=== PATIENT | male | born 1985 | race Caucasian/White ===

== ENCOUNTER 2017-04-22 16:10 | Inpatient (IN) | payer OTHER ==
[2017-04-24] MEDS ORDERED: MAGNESIUM HYDROXIDE 30 ML UDCUP PO PRN (16:21)
[2017-04-24] MEDS ORDERED: MAG HYDROX/AL HYDROX/SIMETH 30 ML UDCUP PO PRN (16:21)
[2017-04-24] MEDS ORDERED: SENNOSIDES 17.6 MG/10 ML UDL PO PRN (16:21)
[2017-04-24] MEDS: ACETAMINOPHEN 325 MG TAB PO PRN (18:25)
--- NOTE | 2017-04-24 18:48 | GHP ---
[f rep st] HISTORY AND PHYSICAL DATE OF ADMISSION: 04/24/2017 DATE OF EVALUATION: 04/24/2017. TIME OF EVALUATION: 3:45 p.m. REFERRING FACILITY: [facility]. IMPAIRMENT GROUP: 3.2-Hwncmquo-Ndwsu syndrome. REFERRING PHYSICIAN: REHABLITATION DIAGNOSES: Guillain-Delta syndrome; gait dysfunction; ADL dysfunction; possible neurogenic bladder. DATE OF SURGERY: Nonapplicable. HISTORY OF PRESENT ILLNESS: This is a 31-year-old male, who was in relatively good health until 04/13/2017, when he began to experience ascending paresthesias involving both lower extremities, and the right upper extremity with fairly rapid progression proximally. He notes that these symptoms began approximately 1 week after a DPT vaccination. He was admitted to [facility] and evaluated in the emergency department where he was noted to have progressive limb paresthesias as described above. A metabolic workup was essentially negative. Neurologic consult included lumbar puncture, extensive lab work, and based on this, patient was diagnosed with Guillain- Delta syndrome. He received IVIG. He was monitored in the intensive care unit where he was given CPAP, however, intubation and mechanical ventilation were deemed not necessary. He received PT, OT and speech therapy, and while in the hospital, he had been ambulating at least 50 feet with a walker. Currently, he reports dysesthetic-type pain in both legs and the left upper extremity, which he rates as 6/10. He does feel that the paresthesias in the legs and arms are dissipating, but he continues to have 4-limb weakness. He does note he is able to ambulate short distances with the walker, but feels somewhat unsteady on his feet. He reports that he had a Pierre catheter while hospitalized and this was removed prior to his transfer. He reports that he has not been able to spontaneously void, and reports difficulty with initiation. He has had 1 small bowel movement during recent hospitalization and reports that he is passing gas. He has been given a mild laxative, according to his reports. He currently denies shortness of breath, although he does note that he tends to get indigestion and this is accompanied with shortness of breath. He denies chest pain. He denies dizziness. He does report intermittent severe headaches. Functional history :Prior to onset of Guillain-Delta syndrome, he was functioning independently in both work and leisure-related activities. 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 He does relate some history of low back and right lumbar radicular symptoms secondary to what he describes as a disk herniation in his lower back and was previously undergoing treatment for this prior to onset of Guillain-Delta syndrome. He did not report any work-related difficulty secondary to this. REVIEW OF SYSTEMS: As per HPI, otherwise negative. PRECAUTIONS: Fall precautions due to weakness secondary to Guillain-Delta syndrome. ACTIVE COMORBIDITIES: None. PAST MEDICAL HISTORY: Noncontributory. Patient reports that other than history of low back and right lower extremity radicular symptoms, he does not have any other medical issues. FAMILY HISTORY: Noncontributory. SOCIAL HISTORY: He is not . He has a son and is in contact with his son 's mother. He denies alcohol abuse. Smokes marijuana occasionally. ALLERGIES: No known drug allergies. Reports intolerance to Flexeril. MEDICATIONS ON ADMISSION: Tylenol. Lovenox 40 b.i.d. Gabapentin 300 mg b.i.d. Metoprolol 75 mg b.i.d. Zofran 4 mg p.o. q.8 hours p.r.n. Oxycodone 5 mg. PHYSICAL EXAMINATION: CONSTITUTIONAL: Tall, heavyset male, NAD. VITAL SIGNS: Blood pressure 130/104, pulse 133, respirations 18 and regular. HEENT: Pupils are equal, round and reactive to light and accommodation. Oral mucosa is moist. PSYCHIATRIC: Alert and oriented x3. Appropriate. Demonstrates good short-term and long-term memory. LYMPH: No cervical of inguinal lymphadenopathy. CARDIOVASCULAR: Tachycardic with heart rate at 133, regular rate and rhythm. No bruits or gallops. No lower extremity edema. No upper extremity edema. RESPIRATORY: Decreased breath sounds right mid lung mcfarland. Lungs otherwise clear to auscultation without rhonchi, rales or wheezing. GI: Abdomen protuberant, slightly distended. Hypoactive bowel sounds all 4 quadrants, no rebound guarding or tenderness. No palpable masses.. : No suprapubic tenderness. No Pierre catheter in place. SKIN: No rashes or lesions noted in all 4 extremities, trunk, or abdomen. NEUROLOGIC: He has s functional strength in all 4 extremities; 4/5 anterior and middle deltoid, biceps, triceps, wrist and finger inflexors. Normal and symmetric it analyst strength. Negative Kristin test. Lower extremity motor exam reveals 3+/5 right and left hip flexors while seated with slight weakness on the left compared to the right. 4-/5 right quadriceps, 3+/5 left quadriceps. 4/5 right and left tibialis anterior and extensor hallucis longus. 4/5 right and left hamstring strength. No ankle clonus. Muscle stretch reflexes: Areflexic patellar and Achilles. Cranial nerves 2 through 12 grossly intact. DATA: By chart review, labs from 04/20/2017, include sodium 132, potassium 3.8 , chloride 101, CO2 24, BUN 6, creatinine 0.7, glucose 92. No other data available. IMPRESSION/PLAN: 1. Guillain-Delta syndrome- He demonstrates functional upper and lower extremity strength with lower extremity greater than upper extremity weakness and slight decreased strength on the left compared to the right. He is already ambulating 50 feet using FWW. The patient will have a modified therapy program consisting of 2 to 3 hours of therapy per day to avoid fatigue. Patient counseled not to overstress muscles and not to work to the point of fatigue. Patient will be seen by Physical Therapy for lower extremity strengthening, gait and balance training and will work in concert with occupational therapy for trunk strengthening. Use of assistive devices as deemed necessary.Occupational Therapy for upper extremity strengthening, use of assistive devices as deemed necessary. Speech Therapy consult to evaluate appropriate diet and perform swallowing screen. 2. Neuropathic pain-patient is currently on gabapentin 300 mg b.i.d. Patient advised that as his recovery continues, he may experience increased dysesthetic- type pain, which was reviewed with him in detail. Patient advised that we can always increase his Neurontin up to a dose of 3600 daily if necessary. 3. Pain management: Current pain medications in addition to gabapentin, include Oxycodone 5 mg q.6 hours, and acetaminophen 650 p.o. q.4 hours; not to exceed 3 g of Tylenol per day. Current pain level not expected to impede rehab efforts. 4. Possible neurogenic bladder-his Pierre catheter was removed prior to his transfer to this facility. We will have nursing attempt to perform timed voids with patient, straight cath for scanning volumes greater than 300. 5. Bowel program: Patient states that he has been passing gas and had a small bowel movement prior to his discharge. We will place on a bowel program and adjust bowel medications as needed. Will obtain KUB flat and upright to assess for gastroparesis and impaction. 6. Headaches-we will monitor his blood pressure as his headaches may be a result of spiking blood pressures, which are consistent with autonomic dysfunction from Guillain-Delta syndrome. He has Oxycodone which he can take for headaches as well. 7. Deep venous thrombosis prophylaxis. We will restart Lovenox 40 mg q.12. This was discussed with Pharmacy and nursing. We will extend this an additional 5 days since he has only been on this for 5 days thus far. Also, implement knee-high MIC hose and sequential compression devices. 8. Skin: We will continue to monitor for skin breakdown. 9. Code status: Full code. 10. Estimated length of stay: 14-21 days. We will increase the length of daily physical and occupational therapy as patient demonstrates ability to tolerate longer therapies. /[id number]/MODL MTDD
[2017-04-24] MEDS: ONDANSETRON DISINTEGRATING 4 MG TAB PO PRN (20:11)
[2017-04-24] MEDS ORDERED: ENOXAPARIN 30 MG/0.3 ML SYR SC SCH (21:00)
[2017-04-24] MEDS: SENNOSIDES/DOCUSATE SODIUM TAB PO SCH (21:37)
[2017-04-24] MEDS: ENOXAPARIN 40 MG/0.4 ML SYR SC SCH (21:37)
[2017-04-24] MEDS: GABAPENTIN 300 MG CAP PO SCH (21:37)
[2017-04-24] MEDS: METOPROLOL TARTRATE 50 MG TAB PO SCH (21:37)
[2017-04-24 22:39] LABS: % IMMATURE GRANULYOCYTES 0.6 % (0.0-1.1); ABSOLUTE IMMATURE GRANULOCYTES 0.03 10^3/uL (0.00-0.10); ADD DIFF? NO; ADD MORPH? NO; ADD SCAN? YES; FRAGMENT RBC FLAG 0 (0-99); HEMATOCRIT 49.5 % (40.0-51.0); HEMOGLOBIN 16.6 g/dL (13.7-17.5); LEFT SHIFT FLG 0 (0-99); LIPEMIA HEMOLYSIS FLAG 80 (0-99); MEAN CELL HEMOGLOBIN 28.8 pg (27.9-34.1); MEAN CELL HEMOGLOBIN CONCENTR. 33.5 g/dL (32.4-36.7); MEAN CELL VOLUME 85.8 fL (81.5-99.8); MEAN PLATELET VOLUME 10.1 fL (8.7-11.7); PLATELET CLUMPS FLAG 0 (0-99); PLATELET COUNT 197 10^3/uL (150-400); RED BLOOD CELL COUNT 5.77 10^6/uL (4.40-6.38); RED CELL DISTRIBUTION WIDTH 13.7 % (11.5-15.2)
[2017-04-24 22:41] LABS: ATYPICAL LYMPHOCYTE FLAG 190 (0-99)
[2017-04-24 22:50] LABS: ALANINE AMINOTRANSFERASE 76 IU/L (21-72); ALBUMIN 4.4 g/dL (3.5-5.0); ALKALINE PHOSPHATASE 75 IU/L (38-126); ANION GAP 17 mEq/L (8-16); ASPARTATE AMINOTRANSFERASE 59 IU/L (17-59); BILIRUBIN,TOTAL 1.1 mg/dL (0.1-1.4); CALCIUM 9.5 mg/dL (8.5-10.4); CARBON DIOXIDE 21 mEq/l (22-31); CHLORIDE 97 mEq/L (97-110); CREATININE 0.8 mg/dL (0.7-1.3); GLOMERULAR FILTRATION RATE > 60; GLUCOSE 129 mg/dL (70-100); POTASSIUM 4.4 mEq/L (3.5-5.2); SODIUM 135 mEq/L (134-144); TOTAL PROTEIN 9.6 g/dL (6.3-8.2)
[2017-04-24 23:09] LABS: SCAN NEGATIVE
[2017-04-25] MEDS ORDERED: BISACODYL 10 MG SUPP PR PRN (08:18)
[2017-04-25] MEDS: oxyCODONE IR 5 MG TAB PO PRN (08:36)
--- NOTE | 2017-04-25 09:42 | SOAPPROG ---
SOAP Progress Note Assessment/Plan: Assessment: 1. Guillain-[place] syndrome-he has constipation secondary to gastroparesis. Because he did not get a KUB last p.m. and because of his increased complaints of abdominal pain this morning, he was sent to the [facility] [place] emergency department for evaluation to rule out an obstruction. I did discuss this in detail with prior to transfer to the emergency department and he expressed full comprehension of this. I discussed case with the ER physician over at [facility] [place] who will obtain a stat abdominal CT to look for obstruction. If he does have obstruction he will be admitted to [facility], if it is just constipation he will be sent back to us for judicious bowel program. Depending on his level of discomfort, he may not be able to participate in therapies today if he is returned to us. Will try to avoid opioid analgesics for now as this will aggravate his constipation. Will discuss with nursing to an encourage p.o. fluids as well as having him sit upright in a bedside chair to help with bowel mobility. Plan: 04/25/17 09:[address] Catracho maldonado is report freida Taylor further rehab 04/25/17 17:20 Subjective: He reports abdominal pain this morning and has been unable to have a bowel movement although he did pass some gas earlier this morning. He denies shortness of breath or chest pain. He does reports some rectal pain due to secondary recent straining while on the bedside commode. He does not report any increased upper lower extremity pain, sensory disturbance or weakness. Objective: Vital Signs Temp Pulse Resp BP Pulse Ox 36.4 C 102 H 18 116/82 H 95 04/25/17 09:03 04/25/17 09:03 04/25/17 09:03 04/25/17 09:03 04/25/17 09:03 Laboratory Results 04/24/17 22:00 04/24/17 22:00 04/24/17 04/25/17 04/26/17 05:59 05:59 05:59 Intake Total 800 Balance 800 PT TNP 04/25/17 05:42 INR TNP 04/25/17 05:42 Physical Exam - Physical Exam General Appearance: WD/WN, alert, moderate distress (Moderate distress due to GI discomfort) EENT: PERRL/EOMI Neck: supple Respiratory: lungs clear, No crackles, No rales, No rhonchi Cardiac/Chest: tachycardia, No edema Abdomen: soft (.), No normal bowel sounds, No non-tender, No pulsatile mass, No guarding Neuro/Psych: alert (Neurological exam unchanged from previous) ICD10 Worksheet Patient Problems: Problems Problem Status Onset Abdominal pain Acute
[2017-04-25] MEDS ORDERED: MAGNESIUM CITRATE 300 ML BOTTLE PO ONE (11:35)
[2017-04-25] MEDS: GABAPENTIN 300 MG CAP PO SCH ×2 (13:14→21:15)
[2017-04-25] MEDS: ENOXAPARIN 40 MG/0.4 ML SYR SC SCH ×2 (13:14→21:15)
[2017-04-25] MEDS: METOPROLOL TARTRATE 50 MG TAB PO SCH ×2 (13:15→21:16)
[2017-04-25] MEDS: SENNOSIDES/DOCUSATE SODIUM TAB PO SCH ×2 (13:16→21:16)
[2017-04-25] MEDS: ACETAMINOPHEN 325 MG TAB PO PRN (13:17)
[2017-04-25 15:33] LABS: INR 1.01 (0.83-1.16); PROTIME(PATIENT) 13.2 SEC (12.0-15.0)
[2017-04-25] MEDS: PREPARATION H 51 GM CRTUBE PR PRN (17:25)
[2017-04-26] MEDS: oxyCODONE IR 5 MG TAB PO PRN ×3 (02:43→20:22)
[2017-04-26] MEDS: PREPARATION H 51 GM CRTUBE PR PRN ×2 (02:44→07:47)
[2017-04-26] MEDS: ACETAMINOPHEN 325 MG TAB PO PRN ×2 (06:29→10:38)
[2017-04-26] MEDS: ENOXAPARIN 40 MG/0.4 ML SYR SC SCH ×2 (07:45→20:23)
[2017-04-26] MEDS: METOPROLOL TARTRATE 50 MG TAB PO SCH ×2 (07:46→20:23)
[2017-04-26] MEDS: GABAPENTIN 300 MG CAP PO SCH ×2 (07:46→20:23)
[2017-04-26] MEDS: SENNOSIDES/DOCUSATE SODIUM TAB PO SCH ×2 (07:48→20:22)
--- NOTE | 2017-04-26 12:04 | SOAPPROG ---
SOAP Progress Note Assessment/Plan: Assessment: 1. Guillain-[place] syndrome-NO C/O INCREASING DYSESTHETIC PAIN. HE REPORTS STRENGTH IS SLOWLY RETURNING. 2.CONSTIPATION- RESOVED. ORDER WRITTEN FOR MIRILAX. 3.RECTAL PAIN- PROCTOFOAM. CHECKED WITH NURSING-SITZ BATHES UNAVAILABLE. 4. PULMONARY REHAB-CONTINUE USING INCENTIVE SPIROMETER. DENIES SOB. PHYS THERAPY TO GIVE EXERCISES TO STRENGTHEN DIAPHRAGM AND ACCESSORY BREATHING MUSCLES. 5. GAIT DYSFX- PHYSICAL THERAPY TO STRENGTHEN LE's ,trunk muscles 6. ADL dysfx- UE AND TRUNK STRENGTHENING Plan: 04/25/17 09:[address] Hayden a is report numb Brandon further rehab 04/25/17 17:20 04/26/17 12:05 Subjective: HE HAD FOUR LARGE BMs yesterday. He reports rectal pain today and is quite uncomfortable. reports poor appetite. Objective: Vital Signs Temp Pulse Resp BP Pulse Ox 36.8 C 92 14 121/82 H 95 04/26/17 07:52 04/26/17 07:52 04/26/17 07:52 04/26/17 07:52 04/26/17 07:52 Laboratory Results 04/24/17 22:00 04/24/17 22:00 04/25/17 04/26/17 04/27/17 05:59 05:59 05:59 Intake Total 800 1700 Output Total 700 Balance 800 1000 PT 13.2 SEC (12.0-15.0) 04/25/17 14:00 INR 1.01 (0.83-1.16) 04/25/17 14:00 Physical Exam - Physical Exam General Appearance: WD/WN Respiratory: lungs clear, normal breath sounds, respiratory distress, No rales, No rhonchi, No stridor, No wheezing Cardiac/Chest: regular rate, rhythm, edema Abdomen: normal bowel sounds, non-tender, soft Skin: normal color Neuro/Psych: motor weakness (NO CHANGE FROM ADMIT HAND P), depressed affect ICD10 Worksheet Patient Problems: Problems Problem Status Onset 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
[2017-04-26] MEDS: POLYETHYLENE GLYCOL 3350 17 GM PKT PO SCH (13:27)
[2017-04-26] MEDS: PROCTOFOAM HC 10 GM CAN PR SCH ×2 (16:37→23:51)
[2017-04-27] MEDS: PROCTOFOAM HC 10 GM CAN PR SCH ×3 (05:07→21:27)
[2017-04-27] MEDS: oxyCODONE IR 5 MG TAB PO PRN (05:13)
[2017-04-27] MEDS: METOPROLOL TARTRATE 50 MG TAB PO SCH ×2 (08:46→21:23)
[2017-04-27] MEDS: POLYETHYLENE GLYCOL 3350 17 GM PKT PO SCH (08:46)
[2017-04-27] MEDS: SENNOSIDES/DOCUSATE SODIUM TAB PO SCH ×2 (08:46→21:19)
[2017-04-27] MEDS: GABAPENTIN 300 MG CAP PO SCH ×4 (08:46→21:24)
[2017-04-27] MEDS: ENOXAPARIN 40 MG/0.4 ML SYR SC SCH ×2 (08:47→21:19)
--- NOTE | 2017-04-27 16:01 | SOAPPROG ---
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 Initial functional independence measure score of 91. He is independent in the room with a front wheeled walker. He ambulated 150 feet limited by fatigue and paresthesias in his feet. He requires supervision to modified independence for bathing. He accomplished dressing both seated in the chair and standing with set up and cues, and required cues and supervision for safety for a tub transfer. He fatigue easily. Continue physical and occupational therapy to optimize mobility and activities of daily living. * Constipation, resolved. Continue polyethylene glycol. * Rectal pain status post relief of constipation. Continue Proctofoam. * Reduced appetite and occasional nausea. Possible gallbladder disease seen on abdominal CT 2 days ago. However he currently has no symptoms referable to the gallbladder. Continue nutritional supplementation per dietitian. Observe for return of normal appetite with effective treatment of constipation. * Insomnia. Trial of trazodone. * Neuropathic pain in the feet. Will increase gabapentin. * Hypertension and tachycardia. Continue metoprolol. Would not be expected as a consequence of autonomic dysfunction related to Guillain-Rodney syndrome. Check EKG and get stat D-dimer though he has no other signs or symptoms consistent with pulmonary embolus. Attended staffing, 15 minutes. Discussed with case management, nursing, dietitian, PT, OT. 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 Discharge date set for 2016. 04/27/17 16:53 Subjective: Complains of reduced appetite and reports brief episodes of nausea. Additionally describes epigastric discomfort. The symptoms can happen even when watching ever ties Ms. for food on the television. Had 3 bowel movements today. He has met with a dietitian today and he is tolerating Ensure. He is not sleeping well; partly he has generalized discomfort when bed, partly he is missing his children. He had been trying to not take opiate medications due to the constipation affect but he needs them at night. He has a sensation of bone on ground when he is walking. Objective: Vital Signs Temp Pulse Resp BP Pulse Ox 36.6 C 142 H 16 140/91 H 96 04/27/17 12:00 04/27/17 12:00 04/27/17 12:00 04/27/17 12:00 04/27/17 12:00 Laboratory Results 04/24/17 22:00 04/24/17 22:00 04/26/17 04/27/17 04/28/17 05:59 05:59 05:59 Intake Total 1700 1090 318 Output Total 700 Balance 1000 1090 318 PT 13.2 SEC (12.0-15.0) 04/25/17 14:00 INR 1.01 (0.83-1.16) 04/25/17 14:00 - Time Spent With Patient Time Spent With Patient: Greater than 35 minutes floor time today, including more than 50% of time in coordination of care during staffing meeting and counseling patient. 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
[2017-04-27] MEDS: traZODone 50 MG TAB PO SCH (21:24)
[2017-04-28] MEDS: GABAPENTIN 300 MG CAP PO SCH ×4 (09:54→21:56)
[2017-04-28] MEDS: POLYETHYLENE GLYCOL 3350 17 GM PKT PO SCH (09:54)
[2017-04-28] MEDS: ENOXAPARIN 40 MG/0.4 ML SYR SC SCH ×2 (09:55→21:56)
[2017-04-28] MEDS: METOPROLOL TARTRATE 50 MG TAB PO SCH ×2 (09:55→21:56)
[2017-04-28] MEDS: SENNOSIDES/DOCUSATE SODIUM TAB PO SCH ×2 (09:55→21:56)
[2017-04-28] MEDS: PROCTOFOAM HC 10 GM CAN PR SCH (09:57)
--- NOTE | 2017-04-28 12:16 | SOAPPROG ---
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 Initial functional independence measure score of 91. He is independent in the room with a front wheeled walker. He ambulated 150 feet limited by fatigue and paresthesias in his feet. He requires supervision to modified independence for bathing. He accomplished dressing both seated in the chair and standing with set up and cues, and required cues and supervision for safety for a tub transfer. He fatigues easily. Continue physical and occupational therapy to optimize mobility and activities of daily living. * Neuropathic foot pain. No response initially to gabapentin. Continue to monitor. * Constipation, resolved. Continue polyethylene glycol. * Rectal pain status post relief of constipation. Continue Proctofoam; changed to p.r.n. on 04/28/2017. * Reduced appetite and occasional nausea. Possible gallbladder disease seen on abdominal CT 2 days ago. However he currently has no symptoms referable to the gallbladder. Continue nutritional supplementation per dietitian. Observe for return of normal appetite with effective treatment of constipation. * Insomnia. Trial of trazodone. Interrupted sleep last night for chest CT angiogram. Observe for efficacy tonight 04/28/2017. * Neuropathic pain in the feet. Will increase gabapentin. * Hypertension and tachycardia. Continue metoprolol. 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 Had elevated D-dimer 04/27/2017 but pulmonary embolus and DVT ruled out with chest CT angiogram and Doppler ultrasound of the legs. Await EKG result. 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 Discharge date set for 05/04/2017. 04/28/17 12:34 Subjective: No complaints today. Does not feel palpitations. No shortness of breath or cough. No fevers or chills. Has not noticed an improvement in neuropathic foot pain with increased gabapentin. Noted that trazodone did make him sleepy yesterday evening but then sleep was interrupted by transport to [facility] for chest CT. Objective: Vital Signs Temp Pulse Resp BP Pulse Ox 37.5 C 103 H 15 124/79 H 91 L 04/28/17 08:00 04/28/17 09:55 04/28/17 08:00 04/28/17 09:55 04/28/17 08:00 Laboratory Results 04/24/17 22:00 04/24/17 22:00 04/27/17 04/28/17 04/29/17 05:59 05:59 05:59 Intake Total 1090 818 200 Balance 1090 818 200 PT 13.2 SEC (12.0-15.0) 04/25/17 14:00 INR 1.01 (0.83-1.16) 04/25/17 14:00 Physical Exam - Physical Exam Respiratory: normal breath sounds, No crackles, No rhonchi, No wheezing Cardiac/Chest: regular rate, rhythm, tachycardia, No diastolic murmur, No systolic murmur Skin: normal color, warm/dry Neuro/Psych: alert, normal mood/affect, oriented x 3, abnormal gait (Supporting some weight on the front wheeled walker, wide-based gait.), motor weakness (B LE ) ICD10 Worksheet Patient Problems: Problems Problem Status Onset 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
[2017-04-28] MEDS ORDERED: PROCTOFOAM HC 10 GM CAN PR PRN (12:37)
--- NOTE | 2017-04-28 16:59 | CPEKG ---
Heart Rate: 96 RR Interval: 625 P-R Interval: 168 QRSD Interval: 94 QT Interval: 328 QTC Interval: 415 P [place]: 51 QRS [place]: 24 T Wave [place]: 32 EKG Severity - NORMAL ECG - EKG Impression: SINUS RHYTHM Electronically Signed By: Charlene Figueroa 28-Apr-2017 19:36:33
[2017-04-28] MEDS: traZODone 50 MG TAB PO SCH (21:56)
[2017-04-29] MEDS: GABAPENTIN 300 MG CAP PO SCH ×4 (08:41→21:01)
[2017-04-29] MEDS: SENNOSIDES/DOCUSATE SODIUM TAB PO SCH ×2 (08:42→21:00)
[2017-04-29] MEDS: POLYETHYLENE GLYCOL 3350 17 GM PKT PO SCH (08:42)
[2017-04-29] MEDS: ENOXAPARIN 40 MG/0.4 ML SYR SC SCH ×2 (08:42→21:00)
[2017-04-29] MEDS: METOPROLOL TARTRATE 50 MG TAB PO SCH ×2 (08:45→21:01)
--- NOTE | 2017-04-29 09:19 | PDOREHIP ---
Admission [facility] - Admission - 3 Day Assessment Period Admission Date/Day 1: 04/24/17 Day 2: 04/25/17 Day 3: 04/26/17 - Active Diagnoses Comorbidities and Co-existing Conditions at Admission: 11023. None of the Above - Skin Conditions Unhealed Pressure Ulcer (1 or more/Stage 1 or >)-Admission: 0. No (None present on admission by history)
--- NOTE | 2017-04-29 09:27 | SOAPPROG ---
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 Continue to monitor for neuropathic pain in the legs, increased gabapentin as needed. ECG was normal sinus rhythm, normal ECG by report yesterday. Remainder of plan below is unchanged. ECG tracing was personally viewed, I concur with her report. This is the 1st time I am seeing the patient, all medical issues are new to me. Labs reviewed, elevated D-dimer on 04/27. 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 Initial functional independence measure score of 91. He is independent in the room with a front wheeled walker. He ambulated 150 feet limited by fatigue and paresthesias in his feet. He requires supervision to modified independence for bathing. He accomplished dressing both seated in the chair and standing with set up and cues, and required cues and supervision for safety for a tub transfer. He fatigues easily. Continue physical and occupational therapy to optimize mobility and activities of daily living. * Neuropathic foot pain. Reports some benefit with gabapentin increased dosage. Continue to monitor. * Constipation, resolved. Continue polyethylene glycol. * Rectal pain status post relief of constipation. Continue Proctofoam; changed to p.r.n. on 04/28/2017. * Reduced appetite and occasional nausea. Possible gallbladder disease seen on abdominal CT 2 days ago. However he currently has no symptoms referable to the gallbladder. Continue nutritional supplementation per dietitian. Observe for return of normal appetite with effective treatment of constipation. * Insomnia. Trial of trazodone * Neuropathic pain in the feet. Continue gabapentin at 1200 mg total per day, may increase if necessary. * Hypertension and tachycardia. Continue metoprolol. Would not be expected as a consequence of autonomic dysfunction related to Guillain-[place] syndrome. Had elevated D-dimer 04/27/2017 but pulmonary embolus and DVT ruled out with chest CT angiogram and Doppler ultrasound of the legs. Normal ECG on 04/28/2017. 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 Discharge date set for 05/04/2017. 04/29/17 09:19 Subjective: Chief complaint: Neuropathic leg pain No acute events overnight. Patient slept well, working well in therapies. No new shortness of breath or chest pain, no new numbness, tingling, or weakness. He states that his leg pain has improved with the higher dose of gabapentin but he is not sure how it is doing today as he has not yet been out of bed to ambulate on his legs. He notes he has never had any skin problems, denies any skin problems or pressure ulcers on admission to rehab or presently. Endorses continuing neurological improvement. Objective: Vital Signs Temp Pulse Resp BP Pulse Ox 37.1 C 108 H 18 118/84 H 94 04/29/17 08:00 04/29/17 08:45 04/29/17 08:00 04/29/17 08:45 04/29/17 08:00 Laboratory Results 04/24/17 22:00 04/24/17 22:00 04/28/17 04/29/17 04/30/17 05:59 05:59 05:59 Intake Total 818 940 Balance 818 940 PT 13.2 SEC (12.0-15.0) 04/25/17 14:00 INR 1.01 (0.83-1.16) 04/25/17 14:00 Physical Exam - Physical Exam General Appearance: WD/WN, alert, obese, No no apparent distress EENT: No scleral icterus (R), No scleral icterus (L), No hearing deficit Respiratory: lungs clear, normal breath sounds, No respiratory distress, No accessory muscle use, No decreased breath sounds, No rales, No rhonchi, No wheezing Cardiac/Chest: normal peripheral pulses, regular rate, rhythm, No edema Abdomen: normal bowel sounds, non-tender, soft, No guarding Skin: normal color, warm/dry, No cyanosis, No diaphoresis Extremities: No pedal edema, No swelling Neuro/Psych: alert, normal mood/affect, oriented x 3 (Intact [id number] bilaterally), No depressed affect ICD10 Worksheet Patient Problems: Problems Problem Status Onset 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
--- NOTE | 2017-04-29 12:04 | PDOREHIP ---
Admission [facility] - Admission - 3 Day Assessment Period Admission Date/Day 1: 04/24/17 Day 2: 04/25/17 Day 3: 04/26/17 Discharge [facility] - Discharge Skin Conditions Unhealed Pressure Ulcer (1 or more/Stage 1 or >)-Discharge: 0. No
[2017-04-29] MEDS: ACETAMINOPHEN 325 MG TAB PO PRN (19:48)
[2017-04-29] MEDS: traZODone 50 MG TAB PO SCH (21:01)
[2017-04-30 00:40] LABS: COLOR YELLOW; LEUKOCYTE ESTERASE,URINE NEGATIVE (NEGATIVE); NITRITE,URINE NEGATIVE (NEGATIVE)
[2017-04-30 00:43] LABS: MUCUS TRACE /lpf (NONE-1+)
[2017-04-30 01:08] LABS: % IMMATURE GRANULYOCYTES 0.2 % (0.0-1.1); ABSOLUTE IMMATURE GRANULOCYTES 0.01 10^3/uL (0.00-0.10); ADD DIFF? NO; ADD MORPH? NO; ADD SCAN? NO; ATYPICAL LYMPHOCYTE FLAG 50 (0-99); FRAGMENT RBC FLAG 0 (0-99); HEMATOCRIT 44.1 % (40.0-51.0); LEFT SHIFT FLG 0 (0-99); LIPEMIA HEMOLYSIS FLAG 90 (0-99); MEAN CELL HEMOGLOBIN 29.6 pg (27.9-34.1); MEAN PLATELET VOLUME 11.1 fL (8.7-11.7); PLATELET CLUMPS FLAG 0 (0-99); PLATELET COUNT 185 10^3/uL (150-400); RED BLOOD CELL COUNT 5.07 10^6/uL (4.40-6.38); RED CELL DISTRIBUTION WIDTH 13.5 % (11.5-15.2)
[2017-04-30] MEDS: ONDANSETRON DISINTEGRATING 4 MG TAB PO PRN (08:48)
[2017-04-30 09:10] VITALS: O2SAT 94
[2017-04-30] MEDS: SENNOSIDES/DOCUSATE SODIUM TAB PO SCH (09:41)
[2017-04-30] MEDS: POLYETHYLENE GLYCOL 3350 17 GM PKT PO SCH (09:41)
[2017-04-30] MEDS: GABAPENTIN 300 MG CAP PO SCH ×2 (10:39→15:04)
[2017-04-30] MEDS: METOPROLOL TARTRATE 50 MG TAB PO SCH (10:40)
[2017-04-30] MEDS: ENOXAPARIN 40 MG/0.4 ML SYR SC SCH (10:42)
--- NOTE | 2017-04-30 11:50 | SOAPPROG ---
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 Initial functional independence measure score of 91. He is independent in the room with a front wheeled walker. He ambulated 150 feet limited by fatigue and paresthesias in his feet. He requires supervision to modified independence for bathing. He accomplished dressing both seated in the chair and standing with set up and cues, and required cues and supervision for safety for a tub transfer. He fatigues easily. Continue physical and occupational therapy to optimize mobility and activities of daily living. * Neuropathic foot pain. Improved with gabapentin. Continue to monitor. * Constipation, resolved. Continue polyethylene glycol. * Rectal pain status post relief of constipation. Continue Proctofoam; changed to p.r.n. on 04/28/2017. * Emesis and fevers. CBC and urinalysis yesterday overall within normal limits urine with protein and ketones consistent with reduced p.o. intake. Possible gallbladder disease seen on abdominal CT 04/25/17 but alkaline phosphatase normal on labs 04/30/2017 and minor elevations of ALT and AST. No symptoms referable to the gallbladder. Lipase minimally elevated. May have a viral gastroenteritis though no diarrhea. Continue nutritional supplementation per dietitian. Observe for return of normal appetite with effective treatment of constipation. * Hyponatremia, possibly hypovolemic anemic with recent emesis. Encouraged hydration with Gatorade rather than free water. Advise repeat labs on 2016 and close follow-up with PCP. * Insomnia. Trial of trazodone. Interrupted sleep last night for chest CT angiogram. Observe for efficacy tonight 04/28/2017. * Hypertension and tachycardia. Continue metoprolol. 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 Had elevated D-dimer 04/27/2017 but pulmonary embolus and DVT ruled out with chest CT angiogram and Doppler ultrasound of the legs. EKG personally reviewed, normal sinus rhythm. Discharging today 04/30/2017. He is anxious to go home. Encouraged close follow- up including repeat labs on 05/03/2017. Advised hydration with Gatorade rather than free water. 04/30/17 11:39 04/30/17 13:40 Subjective: Has had fevers yesterday evening and this morning. Had emesis x1 today. Continues with poor appetite. Abdomen generally feels sore in the upper abdomen. No cough or dyspnea. No constipation or diarrhea Objective: Vital Signs Temp Pulse Resp BP Pulse Ox 38.3 C 120 H 22 H 131/90 H 94 04/30/17 09:09 04/30/17 09:09 04/30/17 09:09 04/30/17 09:09 04/30/17 09:09 Laboratory Results 04/29/17 21:45 04/24/17 22:00 04/29/17 04/30/17 05/01/17 05:59 05:59 05:59 Intake Total 940 1700 Output Total 250 Balance 940 1450 PT 13.2 SEC (12.0-15.0) 04/25/17 14:00 INR 1.01 (0.83-1.16) 04/25/17 14:00 Physical Exam - Physical Exam General Appearance: WD/WN, alert, no apparent distress, obese Respiratory: No respiratory distress, No accessory muscle use Cardiac/Chest: No edema Abdomen: normal bowel sounds (Hypoactive), non-tender, soft, other (Martinez's negative), No pulsatile mass, No distended, No hepatomegaly Skin: normal color, warm/dry Neuro/Psych: alert, normal mood/affect, oriented x 3 ICD10 Worksheet Patient Problems: Problems Problem Status Onset 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
[2017-04-30 13:06] LABS: ALANINE AMINOTRANSFERASE 74 IU/L (21-72); ALBUMIN 3.8 g/dL (3.5-5.0); ALKALINE PHOSPHATASE 79 IU/L (38-126); ANION GAP 14 mEq/L (8-16); ASPARTATE AMINOTRANSFERASE 62 IU/L (17-59); BILIRUBIN,TOTAL 1.2 mg/dL (0.1-1.4); CALCIUM 9.2 mg/dL (8.5-10.4); CARBON DIOXIDE 21 mEq/l (22-31); CHLORIDE 98 mEq/L (97-110); GLOMERULAR FILTRATION RATE > 60; GLUCOSE 93 mg/dL (70-100); POTASSIUM 4.7 mEq/L (3.5-5.2); SODIUM 133 mEq/L (134-144); TOTAL PROTEIN 8.1 g/dL (6.3-8.2)
[2017-04-30 14:03] VITALS: BP 121/80; PULSE 93; RESP 16; TEMP 99.4
--- NOTE | 2017-04-30 16:29 | GDS ---
[f rep st] DISCHARGE SUMMARY ADMITTING DIAGNOSIS: Debility due to Guillain-[place]ait[place] syndrome. DISCHARGE DIAGNOSIS: Debility due to Guillain-[place]ait[place] syndrome. OTHER DISCHARGE DIAGNOSES: 1. Neuropathic foot pain. 2. Anorexia, nausea and vomiting. 3. Hypertension and tachycardia. CONSULTATIONS: There were none. PROCEDURES: There were none. COMPLICATIONS: There were none. HISTORY AND HOSPITAL COURSE: This patient came to [facility] inpatient rehabilitation from [facility]. He had been hospitalized there on April 13, 2017, with ascending paresthesias involving both lower extremities. Then he developed weakness. He had an extensive workup including lumbar puncture, multiple laboratories and imaging to rule out paraneoplastic or infectious etiologies. He was diagnosed with a Guillain- [place] variant with autonomic symptoms. He was treated with 5 days of IVIG. No intubation or mechanical ventilation was necessary, but he did receive CPAP and monitoring in the intensive care unit He had significant improvement during his rehabilitation stay. In the hospital , he was able to ambulate up to 50 feet with a walker. During his rehabilitation stay, he regained the ability to ambulate 150 feet or farther using trekking poles. He was able to climb and descend 12 steps with a step-to- step pattern using 1 rail and 1 pole. He was made independent in his room using a front-wheeled walker. He achieved modified independence using assistive devices for activities of daily living, generally requiring a front- wheeled walker. On the day before discharge, he developed increased fatigue and was noted to have a fever. Laboratory studies revealed normal white count and normal CBC. Serum chemistry on the day of discharge showed mild hyponatremia with a sodium of 133. He had mild elevation of hepatic transaminases with AST of 62 and ALT at 74. He had felt feverish and he had emesis on the day of discharge. The lipase was checked to rule out pancreatitis , and it was only minimally elevated at 384. Hepatits serology was negative. Abdominal CT at [facility] had shown possible noncalcified gallstones; however, he had a normal alkaline phosphatase and normal exam with a negative Martinez sign., so gallbladder disease was considered very unlikely. His fatigue and emesis were most likely due to either autonomic symptoms related to Guillain-[place] syndrome variant or a viral gastroenteritis. Hyponatremia may have been due to emesis and reduced p.o. intake, while maintaining hydration with free water. He had neuropathic foot pain which was somewhat limiting in terms of his walking duration, but he had some improvement with gabapentin. He had hypertension and tachycardia. D-dimer was elevated on 04/27/2017. Pulmonary embolus and DVT were both ruled out with a chest CT angiogram and Doppler ultrasound studies of the legs. EKG revealed normal sinus rhythm. Hypertension and tachycardia may have been due to an autonomic variant of Guillain-[place] syndrome, but this is a very rare occurrence. PHYSICAL EXAM ON THE DAY OF DISCHARGE: VITAL SIGNS: Blood pressure is 121/80, heart rate is 93, respiratory rate is 16, oxygen saturation is 94% on room air, temperature is 37.4 degrees centigrade. GENERAL: This is an obese man lying in bed. Cooperative and in no acute distress. HEART: Regular rate and rhythm with no murmurs, rubs or gallops. LUNGS: Clear to auscultation bilaterally. ABDOMEN: Soft. Mildly tender epigastric. Nontender in the right upper quadrant. Nondistended, with hypoactive but present bowel sounds. Martinez sign is negative. EXTREMITIES: There is trace to 1+ edema bilaterally in the lower extremities. CONDITION ON DISCHARGE: Fair. ACTIVITY: Ad liliana, but he is not to drive until cleared by Neurology. DIET: Regular. He was encouraged to replace free water with Gatorade. DATE OF NEXT APPOINTMENT: He will follow up with neurologist, Dr. Choi on 05/03. He has followup with primary care provider, Dr. Pate on 05/07/2017. He will have continued physical therapy at [facility], and he will see [facility] Bolt head rose grower, Dr. Mercado. MEDICATIONS AT DISCHARGE: 1. Gabapentin 300 mg p.o. 3 times daily with an extra 300 mg at h.s. 2. Polyethylene glycol 17 g in water p.o. daily. 3. Trazodone 25 mg p.o. q.h.s. 4. Metoprolol 75 mg p.o. b.i.d. 5. Senna/docusate 1 p.o. b.i.d. ISSUES TO BE ADDRESSED AT FOLLOWUP: 1. 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 He will continue physical therapy on an outpatient basis, and he will follow up with neurologist, Dr. Choi. 2. Hyponatremia, emesis and anorexia. These may be continued symptoms of autonomic variant of Guillain-[place] syndrome. There is hepatitis serology pending at the [facility] laboratory system. He was advised to switch from water to Gatorade, and he was advised to have a repeat CMP done on 05/03/2017. 3. Neuropathic pain. Is somewhat improved with gabapentin. 4. Hypertension and tachycardia. He continued metoprolol. Pulmonary embolus was ruled out, as was any aberrant cardiac rhythm. He can follow up with his primary care regarding this issue. Copy requested to: Dr. Jimbo Gallegos [facility] or [facility] Dr. Brandon Pate [facility] Dr. Jose Bethea /[id number]/MODL MTDD
== END 2017-04-30 16:00 | disposition home or self-care (01) | DRG 96 ==
LOC: BREH 04-24 15:28
PROVIDERS: ADMIT Physical Medicine & Rehabilitation; ATTEND Internal Medicine
PROC: F07M3ZZ Motor Function Treatment of Musculoskeletal System - Whole Body (ICD-10-PCS; principal; 2017-04-24)
PROC: F08Z4ZZ Home Management Treatment (ICD-10-PCS; principal; 2017-04-24)
DX: G61.0 Guillain-Barre syndrome (principal); G62.9 Polyneuropathy, unspecified; R51 Headache; R33.9 Retention of urine, unspecified
CPT/HCPCS: 92610-GN; 97110-GP; 97116-GP; 97161-GP; 97166-GO; 97530-GO; 97530-GP; 97535-GO; G0472; J1650

== ENCOUNTER 2017-04-25 09:47 | Emergency (ER) | payer OTHER ==
[2017-04-25] MEDS ORDERED: NS 1,000 ML IV ONE (09:52)
[2017-04-25] MEDS ORDERED: IOPAMIDOL (ISOVUE-300) 100 ML BTL ONE (10:09)
[2017-04-25 10:12] LABS: ADD MORPH? NO; ADD SCAN? YES; FRAGMENT RBC FLAG 0 (0-99); HEMATOCRIT 49.5 % (40.0-51.0); HEMOGLOBIN 17.3 g/dL (13.7-17.5); LEFT SHIFT FLG 0 (0-99); LIPEMIA HEMOLYSIS FLAG 90 (0-99); MEAN CELL HEMOGLOBIN 29.6 pg (27.9-34.1); MEAN CELL HEMOGLOBIN CONCENTR. 34.9 g/dL (32.4-36.7); MEAN CELL VOLUME 84.8 fL (81.5-99.8); MEAN PLATELET VOLUME 9.5 fL (8.7-11.7); PLATELET CLUMPS FLAG 0 (0-99); PLATELET COUNT 198 10^3/uL (150-400); RED BLOOD CELL COUNT 5.84 10^6/uL (4.40-6.38); RED CELL DISTRIBUTION WIDTH 13.6 % (11.5-15.2)
[2017-04-25 10:18] LABS: ATYPICAL LYMPHOCYTE FLAG 180 (0-99)
[2017-04-25 10:26] LABS: ANION GAP 16 mEq/L (8-16); CALCIUM 9.8 mg/dL (8.5-10.4); CARBON DIOXIDE 20 mEq/l (22-31); CHLORIDE 100 mEq/L (97-110); CREATININE 0.8 mg/dL (0.7-1.3); GLOMERULAR FILTRATION RATE > 60; GLUCOSE 107 mg/dL (70-100); POTASSIUM 4.8 mEq/L (3.5-5.2); SODIUM 136 mEq/L (134-144)
[2017-04-25 10:44] LABS: ADD DIFF? YES; SCAN POSITIVE
--- NOTE | 2017-04-25 11:09 | EDPHY ---
H & P Time Seen by Provider: 04/25/17 09:51 HPI/ROS: CHIEF COMPLAINT: No bowel movement for 1 week HISTORY OF PRESENT ILLNESS: 31-year-old man presents the emergency department for abdominal pain. He was admitted through [place] for rehab for recovery from Guillain-[place] syndrome. Patient had a Pierre catheter for neurogenic bladder. On arrival he says he has generalized abdominal pains present for week associated with no bowel movement. Eating and drinking but not having any vomiting. No abdominal trauma. No skin rash. Symptoms mild to moderate. No radiation. REVIEW OF SYSTEMS: Eye: no change in vision ENT: no sore throat Cardiac: no chest pain or syncope Pulmonary: no cough or SOB Abdomen: HPI Musculoskeletal: Chronic back pain unchanged Skin: no rash Neuro: no headache, generalized weakness which is stable from his Guillain-[place] Constitutional: no fever : no urinary symptoms A comprehensive 10 point review of systems is otherwise negative aside from elements mentioned in the history of present illness. PAST MEDICAL HISTORY: Guillain-Kenton syndrome. Previous low back pain. Social history: No alcohol or tobacco General Appearance: Alert and conversant, cooperative. Eyes: No scleral icterus. ENT, Mouth: Normal mucous membranes. Respiratory: Normal respiratory effort, breath sounds equal, lungs are clear to auscultation. Cardiovascular: Regular rate and rhythm. Gastrointestinal: Abdomen is soft and non tender. No right upper quadrant tenderness. Negative Martinez sign. Neurological: Alert and oriented x3. Normally conversant. Face symmetric, patient can move all 4 extremities and assist in transfer onto the bed. Skin: Warm and dry, no rashes. Musculoskeletal: No peripheral edema and no joint swelling. Psychiatric: Not agitated. Emergency Department course/MDM: Plan for chest x-ray at the request of his rehab doctor, and CT abdomen and pelvis to evaluate for abdominal pain. 1113: Results discussed with the patient. I think it is safe to send him back. Message left with Dr. Hayden on his cell phone. Patient's gallbladder findings on CT are noted, however without jaundice or elevated white blood cell count a right upper quadrant tenderness I think gallbladder disease is unlikely to be be the cause the patient's symptoms. At this point I think it is reasonable to return to rehab and continue with ongoing treatment there. Does not appear to require medical admission or surgical consultation at this time. Smoking Status: Never smoked Constitutional: Initial Vital Signs Temperature (C) 36.9 C 04/25/17 10:00 Heart Rate 102 H 04/25/17 10:00 Respiratory Rate 18 04/25/17 10:00 Blood Pressure 104/79 04/25/17 10:00 O2 Sat (%) 94 04/25/17 10:00 O2 Delivery Mode Room Air Allergies/Adverse Reactions: cyclobenzaprine [From Flexeril] Allergy (Verified 04/25/17 09:53) Home Medications: Medication Instructions Recorded Acetaminophen [Tylenol 325mg (*)] 650 mg PO Q6 04/24/17 Gabapentin [Neurontin 300 MG (*)] 300 mg PO BID 04/24/17 Metoprolol Tartrate [Lopressor 50 75 mg PO BID 04/24/17 mg (*)] Ondansetron Odt [Zofran Odt 4 mg 4 mg PO Q8 PRN 04/24/17 (*)] Sennosides/Docusate Sodium 1 each PO BID 04/24/17 [Senokot-S (OTC)] oxyCODONE IR [Oxycodone Ir (*)] 5 mg PO Q6 PRN 04/24/17 Medical Decision Making - Diagnostics Imaging Results: Imaging Impressions Chest X-Ray 04/25/17 09:59 Impression: 1. Possible airways disease 2. Elevation of the right hemidiaphragm of unknown chronicity or clinical significance. 3. Minimal T12 compression of unknown age. Thoracic spine otherwise negative. Abdomen CT 04/25/17 10:05 Impression: 1. Possible noncalcified gallbladder disease. Consider ultrasound. 2. Small amount of gas in the urinary bladder. Has this patient had a recent catheterization? 3. Constipation. Results called and discussed with Sean Mcmillan MD at 04/25/2017 10:51 General information for patients regarding this examination can be found at [email or web address]. If you have questions or comments about this report, please contact me at (hospital) or [phone] (cell). Differential Diagnosis: Differential considered including but not limited to bowel obstruction, appendicitis, constipation, gallbladder disease, mesenteric adenitis. - Data Points Laboratory Results: Laboratory Results 04/25/17 09:54 04/25/17 09:54 04/25/17 04/25/17 04/25/17 09:54 09:54 09:54 WBC 4.43 10^3/uL 10^3/uL (3.80-9.50) RBC 5.84 10^6/uL 10^6/uL (4.40-6.38) Hgb 17.3 g/dL g/dL (13.7-17.5) POC Hgb 18.4 gm/dL H gm/dL (13.7-17.5) Hct 49.5 % % (40.0-51.0) POC Hct 54 % H % (40-51) MCV 84.8 fL fL (81.5-99.8) MCH 29.6 pg pg (27.9-34.1) MCHC 34.9 g/dL g/dL (32.4-36.7) RDW 13.6 % % (11.5-15.2) Plt Count 198 10^3/uL 10^3/uL (150-400) MPV 9.5 fL fL (8.7-11.7) Neut % (Auto) Not Reported Lymph % (Auto) Not Reported [place] % (Auto) Not Reported Eos % (Auto) Not Reported Baso % (Auto) Not Reported Nucleat RBC Rel Count 0.0 % % (0.0-0.2) Absolute Neuts (auto) Not Reported Absolute Lymphs (auto) Not Reported Absolute Monos (auto) Not Reported Absolute Eos (auto) Not Reported Absolute Basos (auto) Not Reported Absolute Nucleated RBC 0.00 10^3/uL 10^3/uL (0-0.01) Immature Gran % Not Reported Seg Neutrophils % 55 % % Band Neutrophils % 1 % % Lymphocytes % 32 % % Monocytes % 12 % % Immature Gran # Not Reported Absolute Seg Neuts 2.44 10^/uL 10^/uL (1.70-6.50) Absolute Band Neuts 0.04 10^3/uL 10^3/uL (0.00-0.70) Absolute Lymphocytes 1.42 10^3/uL 10^3/uL (1.00-3.00) Absolute Monocytes 0.53 10^3/uL 10^3/uL (0.30-0.80) RBC/WBC/PLT Morphology NORMAL (NORMAL) Atypical Lymphocytes 2+ H Platelet Estimate ADEQUATE (ADEQ) Smear Review By Pending POC Sodium 137 mEq/L mEq/L (134-144) Sodium 136 mEq/L mEq/L (134-144) POC Potassium 4.3 mEq/L mEq/L (3.3-5.0) Potassium 4.8 mEq/L mEq/L (3.5-5.2) POC Chloride 100 mEq/L mEq/L (97-110) Chloride 100 mEq/L mEq/L (97-110) Carbon Dioxide 20 mEq/l L mEq/l (22-31) Anion Gap 16 mEq/L mEq/L (8-16) POC BUN 22 mg/dL mg/dL (7-23) BUN 21 mg/dL mg/dL (7-23) Creatinine 0.8 mg/dL mg/dL (0.7-1.3) POC Creatinine 0.9 mg/dL mg/dL (0.7-1.3) Estimated GFR > 60 Glucose 107 mg/dL H mg/dL (70-100) POC Glucose 108 mg/dL H mg/dL (70-100) Calcium 9.8 mg/dL mg/dL (8.5-10.4) Medications Given: Discontinued Medications Sodium Chloride (Ns) 1,000 mls @ 0 mls/hr IV EDNOW ONE; Wide Open PRN Reason: Protocol Stop: 04/25/17 09:53 Last Admin: 04/25/17 09:59 Dose: 1,000 mls Point of Care Test Results: 04/25/17 09:54 POC Sodium 137 POC Potassium 4.3 POC Chloride 100 POC BUN 22 POC Creatinine 0.9 POC Glucose 108 H Departure - Departure Disposition: [facility] Inpatient Acute Clinical Impression: Abdominal pain Qualifiers: Abdominal location: generalized Qualified Code(s): R10.84 - Generalized abdominal pain Condition: Good Instructions: Abdominal Pain (ED) Referrals: Rodri Hayden MD [Medical Doctor] - As per Instructions
[2017-04-25 11:26] LABS: PLATELET ESTIMATE ADEQUATE (ADEQ)
[2017-04-25 11:31] VITALS: BP 123/80; PULSE 105; RESP 18; TEMP 99; O2SAT 94
== END 2017-04-25 11:49 | disposition home or self-care (01) ==
PROC: 3E0337Z Introduction of Electrolytic and Water Balance Substance into Peripheral Vein, Percutaneous Approach (ICD-10-PCS; principal; 2017-04-25)
DX: R10.84 Generalized abdominal pain (principal); E86.9 Volume depletion, unspecified
CPT/HCPCS: 82947-QW; Q9967